=== PATIENT | female | born 1995 | race Caucasian/White ===

== ENCOUNTER 2018-07-29 16:50 | Emergency (ER) | payer OTHER ==
[2018-07-29 17:03] VITALS: RESP 18; TEMP 98.2
--- NOTE | 2018-07-29 18:10 | ED ---
Female Urogenital HPI - General Chief complaint: Vaginal Bleeding Stated complaint: female Time Seen by Provider: 07/29/18 17:51 Source: patient Mode of arrival: ambulatory Limitations: no limitations - History of Present Illness Initial comments: 22-year-old female presenting with heavy vaginal bleeding. Patient states that she has had abnormal periods her entire life. She recently had a period that ended July 07, and she saw her doctor on Monday who prescribed a low dose control that he told her take if she did not start her period during the first week of August. She states on Monday she started having heavy vaginal bleeding and is currently going through one tampon one pad every hour. She denies any lightheadedness or presyncopal symptoms. She denies chance of . Denies abdominal pain. Last Menstrual Period: 07/26/18 - Related Data Allergies Allergy/AdvReac Type Severity Reaction Status Date / Time No Known Allergies Allergy Verified 07/29/18 17:03 Review of Systems ROS Statement: Those systems with pertinent positive or pertinent negative responses have been documented in the HPI. Review of Systems Constitutional: Denies fever, chills Eyes: Denies change in vision, Denies pain Ears, nose, mouth, throat: Denies headaches, Denies sore throat Cardiovascular: Denies chest pain. Denies palpitations Respiratory: Denies shortness of breath, Denies cough Gastrointestinal: Denies abdominal pain. Denies nausea, vomiting, diarrhea. Genitourinary: Denies hematuria, Denies infections. Positive vaginal bleeding. Musculoskeletal: Denies pain, Denies swelling Integumentary: Denies rash Neurological: Denies headache, focal weakness, focal numbness Psychiatric: Denies anxiety, Denies depression Hematologic/Lymphatic: Denies easy bleeding or bruising ROS Other: All systems not noted in ROS Statement are negative. Past Medical History Past Medical History: No Reported History History of Any Multi-Drug Resistant Organisms: None Reported Past Surgical History: Orthopedic Surgery Additional Past Surgical History / Comment(s): l shoulder rotator cuff Past Psychological History: Anxiety, Bipolar, Depression Smoking Status: Current some day smoker Past Alcohol Use History: None Reported, Rare Past Drug Use History: Marijuana General Exam - General Exam Comments Initial Comments: General: Awake, alert, No acute Distress HENT: Normocephalic. Atraumatic Eyes: PERRL. EOMI. No scleral icterus. No injected conjunctiva Neck: Full ROM Chest/Lungs: Clear to auscultation bilaterally. No wheezing, rhonchi, or rales Cardiac: Regular rate, rhythm. No murmurs or rubs Abdomen/GI: Soft, nontender, nondistended. No rebound, guarding, or rigidity. Musculoskeletal: Full ROM Skin: Warm, dry, intact : Small amount of bleeding from closed cervical os without clots. Neurologic: A/Ox3, no weakness, no sensory deficit, no abnormal gait, no coordination deficit Limitations: no limitations Course Vital Signs 07/29/18 07/29/18 16:57 18:19 Temperature 98.2 F Pulse Rate 86 64 Respiratory 18 18 Rate Blood Pressure 132/84 117/66 O2 Sat by Pulse 96 96 Oximetry Medical Decision Making - Medical Decision Making 22-year-old female presenting with vaginal bleeding. Initial exam the patient is awake, alert, no acute distress. VSS. Patient's test is negative and her hemoglobin is stable. She has no presyncopal symptoms. She was instructed to start taking her control that was prescribed by her family physician and to see an [employer]. At this time no further emergent workup indicated. When went to update patient of the results she was no longer in the room. She did not have an IV. She was unable to locate in the emergency department. No further emergent workup indicated. The patient was given return to ED instructions. They were instructed to follow up with their primary care provider. Stable for discharge at this time. - Lab Data Result diagrams: 07/29/18 18:18 Lab Results 07/29/18 07/29/18 Range/Units 18:18 18:18 WBC 12.1 H (3.8-10.6) k/uL RBC 4.67 (3.80-5.40) m/uL Hgb 13.5 (11.4-16.0) gm/dL Hct 40.1 (34.0-46.0) % MCV 85.8 (80.0-100.0) fL MCH 29.0 (25.0-35.0) pg MCHC 33.8 (31.0-37.0) g/dL RDW 13.0 (11.5-15.5) % Plt Count 281 (150-450) k/uL HCG, Qual Not Detected Disposition Clinical Impression: Abnormal vaginal bleeding Disposition: HOME SELF-CARE Condition: Good Instructions (If sedation given, give patient instructions): Dysfunctional Uterine Bleeding (ED) Is patient prescribed a controlled substance at d/c from ED?: No Referrals: Nonstaff,Physician [Primary Care Provider] - 1-2 days Liliana Martinez DO [Doctor of Osteopathic Medicine] - 1-2 days
[2018-07-29 18:20] VITALS: BP 117/66; PULSE 64
[2018-07-29 18:40] LABS: HCT 40.1 % (34.0-46.0); HGB 13.5 gm/dL (11.4-16.0); MCHC 33.8 g/dL (31.0-37.0); MCV 85.8 fL (80.0-100.0); Mean Platelet Volume 6.8; Platelet Count 281 k/uL (150-450); RBC 4.67 m/uL (3.80-5.40); WBC 12.1 k/uL (3.8-10.6)
== END 2018-07-29 19:09 | disposition home or self-care (01) ==
LOC: EC 16:50
DX: N93.9 Abnormal uterine and vaginal bleeding, unspecified (principal); Z32.02 Encounter for pregnancy test, result negative; F17.200 Nicotine dependence, unspecified, uncomplicated
CPT/HCPCS: 36415; 84703; 85027; 86900; 86901; 99284

== ENCOUNTER 2018-07-31 21:17 | Emergency (ER) | payer OTHER ==
[2018-07-31 21:30] VITALS: BP 141/78; PULSE 92; RESP 17; TEMP 98.8
--- NOTE | 2018-07-31 21:54 | XR ---
PROCEDURE: XR hand complete LT - 3V DATE AND TIME: 07/31/2018 9:44 PM CLINICAL INDICATION: PHH; Pain TECHNIQUE: Department protocol COMPARISON: None FINDINGS: The bones and joints are intact. There is no fracture or malalignment. There is diffuse sof t tissue swelling. IMPRESSION: NO ACUTE PROCESS.
--- NOTE | 2018-07-31 21:55 | XR ---
PROCEDURE: XR shoulder complete LT - 3V DATE AND TIME: 07/31/2018 9:44 PM CLINICAL INDICATION: PHH; Pain TECHNIQUE: Department protocol COMPARISON: None FINDINGS: There is no fracture or malalignment. The soft tissues are unremarkable. IMPRESSION: NO ACUTE PROCESS.
[2018-07-31] MEDS ORDERED: IBUPROFEN 600 MG TAB PO STA (22:34)
--- NOTE | 2018-07-31 22:35 | ED ---
Upper Extremity HPI - General Chief Complaint: Extremity Injury, Upper Stated Complaint: Shoulder dislocation Time Seen by Provider: 07/31/18 22:05 Source: patient Mode of arrival: ambulatory Limitations: no limitations - History of Present Illness Initial Comments: 22-year-old female with history of chronic left shoulder dislocation present today for chief complaint of left shoulder pain, left digit 2 and 3 pain. Patient states that earlier she was chasing around her nieces when she fell forward she states she crushed digits 2 and 3 and her left shoulder dislocated. She states this often happens and it relocated by itself. Patient states she still is tenderness over the anterior shoulder as well as bruising to digits 2 and 3. She is concerned of fracture present for evaluation. Patient denies any numbness tingling loss sensation of the upper extremities. She denies a limitations of range of motion of the fingers or shoulder. Patient denies any injury to the wrist or elbows. Patient denies any significant head injury or injury to the neck. She denies loss of consciousness. Remaining review of systems negative upon arrival patient appears well - Related Data Allergies Allergy/AdvReac Type Severity Reaction Status Date / Time No Known Allergies Allergy Verified 07/31/18 21:29 Review of Systems ROS Statement: Those systems with pertinent positive or pertinent negative responses have been documented in the HPI. ROS Other: All systems not noted in ROS Statement are negative. Past Medical History Past Medical History: No Reported History History of Any Multi-Drug Resistant Organisms: None Reported Past Surgical History: Orthopedic Surgery Additional Past Surgical History / Comment(s): l shoulder rotator cuff, Past Psychological History: Anxiety, Bipolar, Depression Smoking Status: Current some day smoker Past Alcohol Use History: Rare Past Drug Use History: None Reported General Exam - General Exam Comments Initial Comments: General: The patient is awake and alert, in no distress, and does not appear acutely ill. Eye: +3 mm pupils are equal, round and reactive to light, extra-ocular move ments are intact. No nystagmus. There is normal conjunctiva bilaterally. No signs of icterus. Ears, nose, mouth and throat: There are moist mucous membranes and no oral lesions. No raccoon or [place] sign. Neck: The neck is supple, there is no tenderness or JVD. Cardiovascular: There is a regular rate and rhythm. No murmur, rub or gallop is appreciated. Respiratory: Lungs are clear to auscultation, respirations are non-labored, breath sounds are equal. No wheezes, stridor, rales, or rhonchi. Musculoskeletal: Normal ROM at the shoulders elbows and wrists bilaterally. Patient is able to fully range at the MTP DIP and PIP joints of all 5 digits of the hands bilaterally. No limitations, patient does have mild tenderness with range of motion at the left shoulder as well as digits 2 and 3 small contusions noted over the PIP joint of the digits 2 and 3. Strength 5/5 all joints tested for range of motion. Sensation intact proximal distal to the injury sites no batch anesthesia. Radial pulses equal bilaterally 2+. Neurological: A&O x 3. CN II-XII intact, There are no obvious motor or sensory deficits. Coordination appears grossly intact. Speech is normal. Skin: Skin is warm and dry and no rashes or lesions are noted. Psychiatric: Cooperative, appropriate mood & affect, normal judgment. Limitations: no limitations Course Vital Signs 07/31/18 21:25 Temperature 98.8 F Pulse Rate 92 Respiratory 17 Rate Blood Pressure 141/78 O2 Sat by Pulse 96 Oximetry Medical Decision Making - Medical Decision Making well-appearing 22-year-old female presenting for follow-up. Imaging studies of the hand and shoulder reveal no acute osseous injury. Patient is small contusions over the fingers however there is no limitations in range of motion no concern for tendon injury. At this time given patient is neurovascular intact. With no pain out of proportion I feel patient is stable for discharge with outpatient orthopedic and primary care follow-up. Patient is agreeable care plan as well as discharge. Patient denies questions at this time. No other complaints. Patient was given ibuprofen for pain management. Instructed to continue this outpatient. Parameters were discussed at length the patient who verbalized understanding. Disposition Clinical Impression: Left shoulder pain, Fall, Finger pain, Finger contusion Disposition: HOME SELF-CARE Condition: Good Instructions (If sedation given, give patient instructions): Contusion in Adults (ED), Shoulder Sprain (ED) Additional Instructions: Please use medication as discussed. Please follow-up with family doctor in the next 2 days. Please return to emergency room if the symptoms increase or worsen or for any other concerns. Is patient prescribed a controlled substance at d/c from ED?: No Referrals: Nonstaff,Physician [Primary Care Provider] - 1-2 days Time of Disposition: 22:35
== END 2018-07-31 23:10 | disposition home or self-care (01) ==
LOC: EC 21:17
DX: S60.022A Contusion of left index finger without damage to nail, initial encounter (principal); S60.032A Contusion of left middle finger without damage to nail, initial encounter; M25.512 Pain in left shoulder; F17.200 Nicotine dependence, unspecified, uncomplicated; W19.XXXA Unspecified fall, initial encounter
CPT/HCPCS: 99283